=== PATIENT | female | born 1990 | race Two or more races ===

== ENCOUNTER 2023-02-11 13:14 | Emergency (ER) | payer OTHER ==
[~2023-02-11] VITALS: Ht 160 cm; Wt 87.5 kg
== END 2023-02-11 18:25 | disposition home or self-care (01) ==
LOC: ER 13:14
PROVIDERS: General Practice
DX: O20.8 Other hemorrhage in early pregnancy (principal); Z3A.01 Less than 8 weeks gestation of pregnancy; N39.0 Urinary tract infection, site not specified; Z91.013 Allergy to seafood

== ENCOUNTER 2023-02-20 03:37 | Emergency (ER) | payer OTHER ==
[~2023-02-20] VITALS: Ht 160 cm; Wt 91.6 kg
== END 2023-02-20 06:12 | disposition home or self-care (01) ==
LOC: ER 03:37
DX: O26.851 Spotting complicating pregnancy, first trimester (principal); Z3A.01 Less than 8 weeks gestation of pregnancy

== ENCOUNTER 2023-03-07 14:50 | Inpatient (IN) | payer OTHER ==
[~2023-03-07] VITALS: Ht 160 cm; Wt 88.5 kg
[2023-03-07 17:20] LABS: HEMATOCRIT 41.9 % (36.0-45.00); HEMOGLOBIN 14.1 g/dL (12.0-15.00); MEAN CELL VOLUME 85.6 fL (80.00-100.00); MEAN CORPUSCULAR HEMOGLOBIN 28.9 pg (27.00-32.0); MEAN CORPUSCULAR HGB CONC 33.7 g/dl (32.0-36.0); PLATELET COUNT 358 K/uL (150-450); RED CELL DISTRIBUTION WIDTH 14.3 % (11.5-14.5)
[2023-03-07 17:39] LABS: PARTIAL THROMBOPLASTIN TIME 28.3 SECONDS (22.0-34.0)
[2023-03-07 17:57] LABS: CALCIUM 8.7 mg/dL (8.5-10.1); CREATININE SERUM 0.6 mg/dL (0.55-1.02); GFR 114.43; POTASSIUM 4.02 mEq/L (3.5-5.1)
== END 2023-03-08 06:35 | disposition home or self-care (01) | DRG 779 ==
LOC: ER 14:51 → O/R 21:36
PROVIDERS: Nurse Practitioner Family; ADMIT Specialist; ATTEND Specialist
PROC: BU4CZZZ Ultrasonography of Uterus and Ovaries (ICD-10-PCS; 2023-03-07)
PROC: 10D17Z9 Manual Extraction of Products of Conception, Retained, Via Natural or Artificial Opening (ICD-10-PCS; principal; 2023-03-07 21:30)
DX: O02.1 Missed abortion (principal); Z3A.08 8 weeks gestation of pregnancy; Z20.822 Contact with and (suspected) exposure to COVID-19

== ENCOUNTER 2025-06-03 16:33 | Emergency (ER) | payer OTHER ==
[~2025-06-03] VITALS: Ht 152.4 cm; Wt 98.9 kg
[2025-06-03] MEDS ORDERED: PRENATA CHEWAB1 EACH PO (16:43)
[2025-06-03 16:44] VITALS: BP 128/85; O2SAT 99
[2025-06-03 17:57] LABS: BASO % 0.6 % (0.1-1.2); EOS # 0.14 (0.04-0.54); EOS % 1.2 % (0.7-7.0); LYMPH # 2.58 (1.18-3.74); LYMPH % 21.3 % (19.3-53.1); MEAN PLATELET VOLUME 11.00 fl (9.4-12.4); MONO # 0.67 (0.24-0.82); MONO % 5.5 % (4.7-12.5); NEUT # 8.65 (1.56-6.13); NEUT % 71.2 % (34.0-71.1); RED CELL DISTRIBUTION WIDTH 12.9 % (11.6-14.4)
[2025-06-03 18:15] LABS: INR 0.97
[2025-06-03 18:25] LABS: URINE APPEARANCE Clear; URINE BILIRRUBIN Negative (NEGATIVE); URINE BLOOD Large; URINE COLOR Yellow; URINE GLUCOSE Negative (NEGATIVE); URINE KETONE 15 (NEGATIVE); URINE LEUKOCYTE Negative; URINE NITRATE Negative; URINE PROTEIN Negative (NEGATIVE); URINE UROBILINOGEN 0.2 E.U./dl
[2025-06-03 18:29] LABS: URINE BACTERIA 176.0 uL (0.0-1933); URINE EPITHELIAL CELLS 7.1 uL (0.0-38.8); URINE RBC 2.6 uL (0.0-20.8); URINE WBC 7.8 uL (0.0-23.2)
[2025-06-03 18:38] LABS: URINE CAST 0.00 uL (0.0-1.40)
[2025-06-03 18:56] LABS: BUN CREA RATIO 11.0 (7.0-25.0); CREATININE SERUM 0.65 mg/dL (0.55-1.02); GFR 102.56; GLUCOSE FASTING 85.0 mg/dL (65-100); OSMOLALITY SERUM 277.0 MOSM/KG (275-295)
== END 2025-06-03 22:42 | disposition home or self-care (01) ==
LOC: ER 16:33
PROVIDERS: General Practice
DX: O20.8 Other hemorrhage in early pregnancy (principal); J45.909 Unspecified asthma, uncomplicated; Z91.013 Allergy to seafood